=== PATIENT | male | born 1960 | race Caucasian/White ===

== ENCOUNTER 2021-10-28 10:30 | Emergency (ER) | payer OTHER, SELFPAY ==
--- NOTE | ~2021-10-28 | XR_ITS ---
EXAMINATION: XR abdomen/kub 1V DATE: 10/28/2021 13:50 INDICATION: Right ureteral stone. TECHNIQUE: A supine view of the abdomen on 2 radiographs was obtained. COMPARISON: CT abdomen and pelvis 10/28/21 FINDINGS: There are no dilated loops of bowel. There is a 5 mm stone in proximal right ureter. There are stones in the kidneys measuring up to 5 mm on the left. Surgical clips in the right upper quadran t are likely from cholecystectomy. There is a dropped surgical clip in the pelvis. IMPRESSION: 1. 5 mm stone in proximal right ureter. 2. Bilateral kidney stones. Reviewed, dictated and finalized at location A.
--- NOTE | ~2021-10-28 | CT_ITS ---
EXAMINATION: CT abdomen pelvis wo con DATE: 10/28/2021 12:24 INDICATION: Right flank pain. Hematuria. TECHNIQUE: Computed tomography (CT) of the abdomen and pelvis was performed without intravenous contr ast. Automated exposure control and iterative reconstruction technique were employed. The dose-length product was 882.69 mGy-cm. COMPARISON: CT abdomen and pelvis 12/26/2013 FINDINGS: The visualized portions of the lung bases demonstrate mild atelectasis. No pleural effusion . The heart size is normal. No pericardial effusion. There is a small sliding hiatal hernia. There is diffuse hepatic steatosis. There are changes of cholecystectomy. The liver, pancreas, and adrenal gl ands are normal. There is a 4 mm stone in right kidney. There is a 5 mm stone in proximal right urete r. There are 5 mm and 2 mm stones in left kidney. The pancreas is moderately enlarged. There is diver ticulosis of the colon without evidence of diverticulitis. There are no dilated loops of bowel. The a ppendix is normal. There are no pathologically enlarged lymph nodes. There is no free intraperitoneal fluid. There are bilateral inguinal hernias containing fat. There is mild thoracolumbar spondylosis. IMPRESSION: 1. 5 mm stone in proximal right ureter. No hydronephrosis. 2. Bilateral nonobstructing kidney stones. Reviewed, dictated and finalized at location A.
[2021-10-28 10:52] VITALS: BP 111/76; PULSE 89; RESP 16; TEMP 36.9; O2SAT 97
[2021-10-28 11:05] LABS: Basophils Percent Auto 0.3 % (0.2-1.2); Eosinophils Percent Auto 0.5 % (0-4.4); Hematocrit 44.7 % (42.0-52.0); Hemoglobin 15.5 g/dL (14.0-18.0); Immature Granulocyte Absolute 0.02 K/mm3 (0.00-0.031); Immature Granulocyte Percent A 0.3 % (0-0.5); Lymphocytes Absolute Auto 1.28 K/mm3 (0.9-3.2); Lymphocytes Percent Auto 16.4 % (18.3-44.2); Mean Corpuscular HGB Conc 34.7 g/dl (32-36); Mean Corpuscular Hemoglobin 30.2 pg (26-34); Mean Platelet Volume 9.7 fl (7.4-10.4); Monocytes Absolute Auto 0.5 K/mm3 (0.1-0.6); Monocytes Percent Auto 6.8 % (2.6-8.5); Neutrophils Absolute Auto 5.9 K/mm3 (1.3-6.7); Neutrophils Percent Auto 75.7 % (45.5-73.1); Platelet Count Result 163 k/mm3 (150-375); Red Blood Count 5.14 M/mm3 (4.6-6.20); Red Cell Distribution Width 13.1 % (11.5-14.5); White Blood Count 7.8 K/mm3 (4.5-10.0)
[2021-10-28 11:18] LABS: Appearance Urine Clear (Clear); Bilirubin Urine Negative (Negative); Blood Urine 2+ (Negative); Color Urine Yellow (Yellow); Glucose Urine UA Negative (Negative); Ketones Urine Negative (Negative); Leukocyte Esterase Ur Negative LEU/UL (Negative); Nitrate Urine Negative (Negative); Protein Urine Negative (Negative); Specific Grav Ur 1.015 (1.001-1.035); Urobilinogen Urine 0.2 mg/dL (<2.0)
[2021-10-28 11:19] LABS: Alanine Aminotransferase 49 U/L (6-50); Albumin Level 5.1 g/dL (3.5-5.1); Alkaline Phosphatase 140 U/L (38-126); Anion Gap 15 mmol/L (8-16); Aspartate Amino Transferase 43 U/L (17-59); Bilirubin,Total 0.8 mg/dL (0.2-1.3); Blood Urea Nitrogen 20 mg/dL (9-20); Calcium 9.9 mg/dL (8.4-10.2); Carbon Dioxide 23 mmol/L (22-30); Chloride 99 mmol/L (98-107); Estimated CRCL calculation 83 ml/min; Estimated Glomerular Filt Rate > 60; Glucose 181 mg/dL (65-110); Lipase 81 U/L (23-300); Sodium 137 mmol/L (137-145)
[2021-10-28 11:38] LABS: Add Urine Microscopic? YES; Mucus Urine Few /lpf; RBC Urine 21-50 /hpf (0-2); Transitional Epi Cells Urine Rare /hpf (None Seen)
[2021-10-28 12:10] VITALS: BP 111/80; PULSE 81; RESP 18; O2SAT 94
--- NOTE | 2021-10-28 12:32 | ED.ABDPAIN ---
HPI - Abdominal Pain General Chief Complaint: Abdominal Pain <KEYSHA Reed Last Filed: 10/28/21 18:47> Stated Complaint: rt flank pain <KEYSHA Reed Last Filed: 10/28/21 18:47> Time Seen by Provider: 10/28/21 12:14 <KEYSHA Reed Last Filed: 10/28/21 18:47> History of Present Illness HPI narrative: Patient is a 61-year-old male here for evaluation of right flank/groin pain over the past several days. Patient states the pain is intermittent in nature, begins in his right flank and wraps around forward into his groin. He saw his primary care doctor upon symptom onset and was told that it may be kidney stone, he was given tramadol for his pain with moderate relief. He states the pain worsened this morning and was associated with some nausea, so he came to the ED. He denies any fevers, diarrhea, constipation, chills, hematuria, urgency, frequency but does note that he has had a decreased stream of urine. No history of kidney stone. <KEYSHA Reed Last Filed: 10/28/21 18:47> Related Data Allergies/Adverse Reactions: Allergies Allergy/AdvReac Type Severity Reaction Status Date / Time No Known Allergies Allergy Mild Unverified 04/23/14 08:13 <KEYSHA Reed Last Filed: 10/28/21 18:47> Review of Systems Review of Systems: Gen.: Denies fevers or chills Eyes: Denies eye pain or visual change ENT: Denies congestion Respiratory: Denies shortness of breath or cough CV: Denies chest pain or palpitations GI: Denies abdominal pain nausea, emesis or diarrhea : reports right flank pain and groin pain Musculoskeletal: Denies back pain or muscle pain Neuro: Denies numbness, tingling, weakness or focal weakness Skin: Denies rash Except as documented, all other systems reviewed and negative <KEYSHA Reed Last Filed: 10/28/21 18:47> Exam Narrative: APPEARANCE: Well appearing, no pain in distress, well-nourished. Head: Normocephalic and atraumatic. EYES: PERRLA/EOMI, conjunctivae clear NOSE: No nasal drainage EARS: External ear normal in appearance THROAT: Oropharynx is clear. Mucous membranes are moist. NECK: Supple. No adenopathy, no masses. RESPIRATORY: Airway patent, respirations nonlabored. Clear to auscultation bilaterally, no rales, rhonchi, wheezing. CARDIOVASCULAR: Regular rate and rhythm without murmurs, rubs, or gallops. ABDOMINAL: Normoactive bowel sounds. Soft, nontender, nondistended. No rebound tenderness or guarding. MUSCULOSKELETAL: Extremities are warm and well-perfused. Moves all extremities well. No edema. NEURO: Normal speech. No focal neurologic deficits. SKIN: Skin is warm and dry. No rashes. PSYCHIATRIC: Normal affect/mood. <Kayla Cavazos PA-C - Last Filed: 10/28/21 18:47> Course FLANGING ROLL OPERATOR/PA Physician Supervision For this patient encounter, I reviewed the FLANGING ROLL OPERATOR or PA documentation, treatment plan, and medical decision making. I was available for consultation as needed. <Indira Miller MD - Last Filed: 10/28/21 23:53> Vital Signs Vital signs: Vital Signs Temperature 98.5 F 10/28/21 10:52 Pulse Rate 89 10/28/21 10:52 Respiratory Rate 16 10/28/21 10:52 Blood Pressure 111/76 10/28/21 10:52 Pulse Oximetry 97 10/28/21 10:52 Oxygen Delivery Room Air 10/28/21 10:52 Temperature 98.5 F 10/28/21 10:52 Pulse Rate 80 10/28/21 14:35 Respiratory Rate 16 10/28/21 14:35 Blood Pressure 115/73 10/28/21 14:35 Pulse Oximetry 97 10/28/21 14:35 Oxygen Delivery Room Air 10/28/21 10:52 <Kayla Cavazos PA-C - Last Filed: 10/28/21 18:47> Vital Signs Temperature 98.5 F 10/28/21 10:52 Pulse Rate 89 10/28/21 10:52 Respiratory Rate 16 10/28/21 10:52 Blood Pressure 111/76 10/28/21 10:52 Pulse Oximetry 97 10/28/21 10:52 Oxygen Delivery Room Air 10/28/21 10:52 Temperature 98.5 F 10/28/21 10:52 Pulse Rat
[2021-10-28] MEDS: MORPHINE SULFATE (*CRX) 4 MG/ML INJ IV PUSH (12:44)
[2021-10-28] MEDS: ONDANSETRON INJ 4 MG/2 ML VIAL IV PUSH (12:44)
[2021-10-28 12:50] VITALS: BP 114/79; PULSE 87; RESP 18; O2SAT 97
[2021-10-28 14:35] VITALS: BP 115/73; PULSE 80; RESP 16; O2SAT 97
== END 2021-10-28 14:35 | disposition home or self-care (01) ==
PROVIDERS: Emergency Medicine; Emergency Provider Emergency Medicine; PCP Internal Medicine
DX: N20.2 Calculus of kidney with calculus of ureter (principal)
CPT/HCPCS: 36415; 74018; 74176; 80053; 81001; 83690; 85025; 96374; 96375; 99284; J2270; J2405

== ENCOUNTER 2023-11-17 13:41 | Outpatient (CLI) | payer BC, SELFPAY ==
--- NOTE | ~2023-11-17 | MR_ITS ---
EXAMINATION: MR shoulder RT wo con DATE: 11/17/2023 14:19 INDICATION: Right shoulder pain TECHNIQUE: Magnetic resonance imaging (MRI) of the right shoulder was performed without intravenous c ontrast. Sequences included axial PD-weighted FS FSE, coronal oblique PD-weighted FS FSE, coronal obl ique T2-weighted FS FSE, sagittal PD-weighted FS FSE, and sagittal T1-weighted SE. COMPARISON: None. FINDINGS: Coracoacromial arch: The acromion undersurface is curved in morphology (type II). The coracoacromial ligament is normal. M ild acromioclavicular osteoarthritis. Rotator cuff: Mild supraspinatus and moderate infraspinatus tendinopathy without tear. The teres minor and subscapu felisa tendons are normal. Normal rotator cuff muscle bulk and signal. Biceps tendon, glenoid labrum and glenohumeral cartilage: Long head of the biceps tendon is normal. There is mild acromioclavicular osteoarthritis with mild pa rtial-thickness cartilage loss with smooth chondral surface along the glenoid most prominent posterio rly and inferiorly. Tiny marginal osteophytes along the anteroinferior glenoid. The inferior labrum i s diminutive suggesting chronic degeneration. There is also likely mild degeneration at the posterior superior labrum which demonstrates amorphous increased signal. Fluid: Physiologic amount of fluid in the glenohumeral joint and biceps tendon sheath. No loose osteochondr al bodies. Small amount of fluid in the subacromial/subdeltoid bursa consistent with mild bursitis. Bones: Normal marrow signal with no edema, fracture or abnormal marrow replacing process. IMPRESSION: 1. Mild subarticular space and moderate infraspinatus tendinopathy without tear. 2. Mild glenohumeral osteoarthritis with degeneration of the posterior superior and inferior glenoid labrum. 3. Mild subacromial/subdeltoid bursitis. Reviewed, dictated and finalized at location A. IMPRESSION: 1. Mild subarticular space and moderate infraspinatus tendinopathy without tear . 2. Mild glenohumeral osteoarthritis with degeneration of the posterior superior and inferior glenoid labrum. 3. Mild subacromial/subdeltoid bursitis.
== END 2023-11-17 13:42 | disposition home or self-care (01) ==
LOC: GOSHIMG 13:42
DX: M75.92 Shoulder lesion, unspecified, left shoulder (principal); M19.09 Primary osteoarthritis, other specified site; S46.811A Strain of other muscles, fascia and tendons at shoulder and upper arm level, right arm, initial encounter; X58.XXXA Exposure to other specified factors, initial encounter; M75.51 Bursitis of right shoulder
CPT/HCPCS: 73221

== ENCOUNTER 2023-12-29 09:41 | Outpatient (CLI) | payer BC, SELFPAY ==
--- NOTE | ~2023-12-29 | XR_ITS ---
XR shoulder RT min 2V 12/29/2023 09:58 Indication: Right shoulder pain Procedure: 4 views right shoulder Comparison: No prior studies for comparison. Findings: No fracture, subluxation or dislocation. There is anatomic alignment. No soft tissue abnorm ality. No foreign bodies. Impression: 1: No acute bone or joint abnormality. Reviewed, dictated and finalized at location [] [employer] TECHNICIAN Impression: 1: No acute bone or joint abnormality.
== END 2023-12-29 09:42 | disposition home or self-care (01) ==
PROVIDERS: Visit Provider Orthopaedic Surgery
DX: M25.511 Pain in right shoulder (principal)
CPT/HCPCS: 73030